=== PATIENT | female | born 1975 | race Caucasian/White ===

== ENCOUNTER 2016-03-28 23:47 | Emergency (ER) | payer OTHER ==
[~2016-03-28] VITALS: Ht 177.8 cm; Wt 124.2 kg
[~2016-03-28 23:47] MED LIST: AMOXICILLIN500 MG PO; ATENOLOL50 M1 NG; ATENOLOL50 MG PO; CYMBALTA20 MG PO; FERGON324 MG PO; IBUPROFEN200 M1 PO; INDERAL40 MG PO; KLONOPIN2 MG PO; MOTRIN600 MG PO; PRISTIQ50 MG; SEROQUEL50 MG; TOPAMAX100 MG PO; TOPAMAX50 MG PO; TYLENOL EXTRA500 MG PO; XANAX XR1 MG PO; XANAX0.5 MG PO
[2016-03-29 01:21] LABS: CHLORIDE 105 mEq/L (99-109); POTASSIUM 3.5 mEq/L (3.7-5.4); SODIUM 141 mEq/L (136-147)
[2016-03-29 01:22] LABS: HEMATOCRIT 38.9 % (36.0-46.0); MCHC 32.1 G/DL (30.0-36.0); MCV 90.3 FL (83-99); MEAN PLAT.VOLUME 10.4 uM^3 (9.5-12.4); PLATELET COUNT 304 K/uL (156-360); RBC DIS.WIDTH-CV 14.7 % (11.8-14.6); RBC DIS.WIDTH-SD 47.6 % (39-53); RED BLOOD COUNT 4.31 M/uL (3.80-5.20); WHITE BLOOD COUNT 9.9 K/uL (4.1-10.2)
[2016-03-29 01:23] LABS: GLUCOSE 102 mg/dL (70-99)
[2016-03-29 01:24] LABS: ANION GAP 5 MEQ/L (2-14)
[2016-03-29 01:27] LABS: GFR ESTIMATE (CALCULATED) > 59 mL/min/; UREA NITROGEN (BUN) 18 mg/dL (9-23)
[2016-03-29 01:30] LABS: TROP-I INTERPRETATION NEGATIVE; TROPONIN-I < 0.01 ng/mL (0.0-0.30)
[2016-03-29 01:38] LABS: QUANTITATIVE HCG < 4.0 MIU/ML
[2016-03-29] MEDS ORDERED: ATARAX,VISTARIL50 MG PO (02:22)
[2016-03-29 02:32] VITALS: BP 110/65
== END 2016-03-29 02:54 | disposition home or self-care (01) ==
LOC: EME 23:47
PROVIDERS: Emergency Medicine
DX: F43.9 Reaction to severe stress, unspecified (principal); F15.23 Other stimulant dependence with withdrawal; F13.239 Sedative, hypnotic or anxiolytic dependence with withdrawal, unspecified; F17.200 Nicotine dependence, unspecified, uncomplicated
CPT/HCPCS: 71010; 80048; 84484; 84702; 85027; 93005; 99281; 99284; Q0177

== ENCOUNTER 2016-05-24 02:57 | Emergency (ER) | payer OTHER ==
[~2016-05-24] VITALS: Ht 177.8 cm; Wt 122.4 kg
[~2016-05-24 02:57] MED LIST changes: +ATARAX,VISTARIL50 MG PO
[2016-05-24 03:44] LABS: HEMATOCRIT 41.3 % (36.0-46.0); MCH 29.2 PG (29.0-34.0); MCHC 32.7 G/DL (30.0-36.0); MCV 89.4 FL (83-99); MEAN PLAT.VOLUME 10.3 uM^3 (9.5-12.4); PLATELET COUNT 242 K/uL (156-360); RBC DIS.WIDTH-CV 14.6 % (11.8-14.6); RBC DIS.WIDTH-SD 48.1 % (39-53); RED BLOOD COUNT 4.62 M/uL (3.80-5.20); WHITE BLOOD COUNT 9.2 K/uL (4.1-10.2)
[2016-05-24 03:54] LABS: CHLORIDE 108 mEq/L (99-109); POTASSIUM 3.4 mEq/L (3.7-5.4); SODIUM 140 mEq/L (136-147)
[2016-05-24 03:56] LABS: GLUCOSE 116 mg/dL (70-99)
[2016-05-24 03:58] LABS: ANION GAP 9 MEQ/L (2-14)
[2016-05-24 04:00] LABS: GFR ESTIMATE (CALCULATED) > 59 mL/min/
[2016-05-24 04:01] LABS: UREA NITROGEN (BUN) 16 mg/dL (9-23)
[2016-05-24 04:05] LABS: TROP-I INTERPRETATION NEGATIVE; TROPONIN-I < 0.01 ng/mL (0.0-0.30)
[2016-05-24] MEDS ORDERED: XANAX2 MG PO (05:27)
[2016-05-24 06:13] VITALS: BP 118/71
== END 2016-05-24 06:18 | disposition home or self-care (01) ==
LOC: EME 02:57
DX: F41.1 Generalized anxiety disorder (principal); F41.0 Panic disorder [episodic paroxysmal anxiety]; R07.89 Other chest pain; J45.909 Unspecified asthma, uncomplicated; F17.200 Nicotine dependence, unspecified, uncomplicated
CPT/HCPCS: 71020; 80048; 84484; 85027; 93005; 99281; 99285

== ENCOUNTER 2016-12-28 15:57 | Emergency (ER) | payer OTHER ==
[~2016-12-28] VITALS: Ht 177.8 cm; Wt 117.9 kg
[~2016-12-28 15:57] MED LIST changes: +XANAX2 MG PO
[2016-12-28] MEDS ORDERED: XANAX1 MG PO (19:02)
[2016-12-28 19:37] VITALS: BP 119/69
== END 2016-12-28 19:40 | disposition home or self-care (01) ==
LOC: EME 15:57
DX: F41.0 Panic disorder [episodic paroxysmal anxiety] (principal); Z76.0 Encounter for issue of repeat prescription; J45.909 Unspecified asthma, uncomplicated; F17.200 Nicotine dependence, unspecified, uncomplicated; Z88.6 Allergy status to analgesic agent
CPT/HCPCS: 99281; 99284

== ENCOUNTER 2017-01-23 14:18 | Emergency (ER) | payer OTHER ==
[~2017-01-23] VITALS: Ht 177.8 cm; Wt 117.5 kg
[~2017-01-23 14:18] MED LIST changes: +XANAX1 MG PO
[2017-01-23 15:36] LABS: EOSINOPHIL (%) 0.9 % (0-5); EOSINOPHIL COUNT 0.1 K/uL (0-0.3); HEMATOCRIT 43.7 % (36.0-46.0); IMMATURE GRANULOCYTE (%) 0.1 % (0.0-0.7); INSTRUMENT ABS NEUTROPHIL CT 5.6 K/uL; LYMPHOCYTE COUNT 2.3 K/uL (1.0-2.8); MCH 32.2 PG (29.0-34.0); MCHC 33.9 G/DL (30.0-36.0); MCV 95.2 FL (83-99); MEAN PLAT.VOLUME 10.2 uM^3 (9.5-12.4); MONOCYTE (%) 6.2 % (3-12); MONOCYTE COUNT 0.5 K/uL (0-0.8); NEUTROPHIL COUNT 5.6 K/uL (1.8-6.4); PLATELET COUNT 274 K/uL (156-360); RBC DIS.WIDTH-CV 12.9 % (11.8-14.6); RBC DIS.WIDTH-SD 45.3 % (39-53); RED BLOOD COUNT 4.59 M/uL (3.80-5.20); WHITE BLOOD COUNT 8.5 K/uL (4.1-10.2)
[2017-01-23 15:44] LABS: CHLORIDE 105 mEq/L (99-109); SODIUM 142 mEq/L (136-147)
[2017-01-23 15:46] LABS: GLUCOSE 99 mg/dL (70-99)
[2017-01-23 15:47] LABS: ANION GAP 12 MEQ/L (2-14)
[2017-01-23 15:49] LABS: SERUM ETHYL ALCOHOL < 10 mg/dL
[2017-01-23 15:50] LABS: GFR ESTIMATE (CALCULATED) > 59 mL/min/
[2017-01-23 15:51] LABS: UREA NITROGEN (BUN) 16 mg/dL (9-23)
[2017-01-23 16:08] VITALS: BP 127/75
== END 2017-01-23 16:13 | disposition home or self-care (01) ==
LOC: EME 14:18
PROVIDERS: Emergency Medicine
DX: F41.1 Generalized anxiety disorder (principal); J45.909 Unspecified asthma, uncomplicated; F17.200 Nicotine dependence, unspecified, uncomplicated; Z88.5 Allergy status to narcotic agent; Z88.6 Allergy status to analgesic agent
CPT/HCPCS: 80048; 81003; 85025; 90839; 93005; 99281; 99284; G0480

== ENCOUNTER 2017-03-17 08:14 | Emergency (ER) | payer OTHER ==
[~2017-03-17] VITALS: Ht 177.8 cm; Wt 120.5 kg
[2017-03-17 11:30] VITALS: BP 128/72
== END 2017-03-17 11:31 | disposition home or self-care (01) ==
LOC: EME 08:14
DX: R06.2 Wheezing (principal); F41.9 Anxiety disorder, unspecified; F41.0 Panic disorder [episodic paroxysmal anxiety]; F43.10 Post-traumatic stress disorder, unspecified; Z90.49 Acquired absence of other specified parts of digestive tract; Z87.09 Personal history of other diseases of the respiratory system; Z88.6 Allergy status to analgesic agent; Z88.5 Allergy status to narcotic agent
CPT/HCPCS: 71046; 94640; 99281; 99284

== ENCOUNTER 2017-05-03 17:37 | Emergency (ER) | payer OTHER ==
[~2017-05-03] VITALS: Ht 177.8 cm; Wt 118.9 kg
[2017-05-03 20:21] VITALS: BP 112/68
== END 2017-05-03 19:49 | disposition home or self-care (01) ==
LOC: EME 17:37
DX: T76.21XA Adult sexual abuse, suspected, initial encounter (principal); J45.909 Unspecified asthma, uncomplicated; F43.10 Post-traumatic stress disorder, unspecified; F17.200 Nicotine dependence, unspecified, uncomplicated; Z88.5 Allergy status to narcotic agent; Z88.6 Allergy status to analgesic agent
CPT/HCPCS: J0696

== ENCOUNTER 2017-06-07 23:34 | Emergency (ER) | payer OTHER ==
[~2017-06-07] VITALS: Ht 177.8 cm; Wt 122.1 kg
[2017-06-07 23:38] VITALS: BP 130/63
[2017-06-08 02:16] LABS: BASOPHIL (%) 0.5 % (0-1); BASOPHIL COUNT 0.1 K/uL (0-0.1); EOSINOPHIL (%) 2.2 % (0-5); EOSINOPHIL COUNT 0.3 K/uL (0-0.3); HEMATOCRIT 42.3 % (36.0-46.0); HEMOGLOBIN 14.3 G/DL (11.9-15.5); IMMATURE GRANULOCYTE (%) 0.4 % (0.0-0.7); LYMPHOCYTE COUNT 3.2 K/uL (1.0-2.8); MCH 32.6 PG (29.0-34.0); MCHC 33.8 G/DL (30.0-36.0); MCV 96.6 FL (83-99); MONOCYTE (%) 5.7 % (3-12); MONOCYTE COUNT 0.8 K/uL (0-0.8); NEUTROPHIL (%) 67.2 % (45-76); PLATELET COUNT 262 K/uL (156-360); RBC DIS.WIDTH-CV 13.1 % (11.8-14.6); RBC DIS.WIDTH-SD 46.7 % (39-53); RED BLOOD COUNT 4.38 M/uL (3.80-5.20); WHITE BLOOD COUNT 13.4 K/uL (4.1-10.2)
[2017-06-08 02:25] LABS: ALBUMIN 3.7 g/dL (3.2-4.8); CHLORIDE 106 mEq/L (99-109); POTASSIUM 3.9 mEq/L (3.7-5.4); SODIUM 143 mEq/L (136-147)
[2017-06-08 02:27] LABS: GLUCOSE 107 mg/dL (70-99); TOTAL PROTEIN 6.8 g/dL (6.4-8.3)
[2017-06-08 02:29] LABS: TOTAL BILIRUBIN 0.3 mg/dL (0.0-1.0)
[2017-06-08 02:30] LABS: SERUM ETHYL ALCOHOL < 10 mg/dL
[2017-06-08 02:31] LABS: ALKALINE PHOSPHATASE 85 IU/L (3-129); CREATININE 0.8 mg/dL (0.6-1.3); GFR ESTIMATE (CALCULATED) > 59 mL/min/
[2017-06-08 02:32] LABS: AST (GOT) 16 IU/L (2-34); UREA NITROGEN (BUN) 15 mg/dL (9-23)
[2017-06-08 02:34] LABS: ALT (GPT) 11 IU/L (3-49)
[2017-06-08 02:39] LABS: QUANTITATIVE HCG < 4.0 MIU/ML
[2017-06-08 03:11] LABS: AMPHETAMINE NEGATIVE (500 ng/mL); BARBITURATES NEGATIVE (200 ng/mL); BENZODIAZEPINES NEGATIVE (150 ng/mL); BUPRENORPHINE NEGATIVE (10 ng/mL); COCAINE NEGATIVE (150 ng/mL); METHADONE NEGATIVE (200 ng/mL); METHAMPHETAMINE NEGATIVE (500 ng/mL); OPIATES (MORPHINE) NEGATIVE (100 ng/mL); OXYCODONE NEGATIVE (100 ng/mL); PHENCYCLIDINE NEGATIVE (25 ng/mL); PROPOXYPHENE NEGATIVE (300 ng/mL); THC CANNABINOIDS NEGATIVE (50 ng/mL); TRICYCLIC ANTIDEPRESSANTS NEGATIVE (300 ng/mL)
== END 2017-06-08 06:36 | disposition home or self-care (01) ==
LOC: EME 23:34
PROVIDERS: Emergency Medicine
DX: F41.1 Generalized anxiety disorder (principal); J45.909 Unspecified asthma, uncomplicated; M54.30 Sciatica, unspecified side; F43.10 Post-traumatic stress disorder, unspecified; F31.9 Bipolar disorder, unspecified; F41.0 Panic disorder [episodic paroxysmal anxiety]; F32.9 Major depressive disorder, single episode, unspecified; Z90.49 Acquired absence of other specified parts of digestive tract; Z88.5 Allergy status to narcotic agent; Z88.6 Allergy status to analgesic agent; F17.200 Nicotine dependence, unspecified, uncomplicated
CPT/HCPCS: 80053; 84702; 85025; 90839; 99281; 99285; G0480

== ENCOUNTER 2017-07-11 23:32 | Emergency (ER) | payer OTHER ==
[~2017-07-11] VITALS: Ht 177.8 cm; Wt 119.7 kg
[2017-07-12 00:50] LABS: CARBON DIOXIDE (BICARBONATE) 30.6 MEQ/L (20-31); HEMATOCRIT 38.7 % (36.0-46.0); HEMOGLOBIN 13.4 G/DL (11.9-15.5); MCH 32.8 PG (29.0-34.0); MCHC 34.6 G/DL (30.0-36.0); MCV 94.9 FL (83-99); PLATELET COUNT 200 K/uL (156-360); RBC DIS.WIDTH-CV 13.2 % (11.8-14.6); RED BLOOD COUNT 4.08 M/uL (3.80-5.20); WHITE BLOOD COUNT 11.1 K/uL (4.1-10.2)
[2017-07-12 01:02] LABS: CHLORIDE 106 mEq/L (99-109); POTASSIUM 3.7 mEq/L (3.7-5.4); SODIUM 139 mEq/L (136-147)
[2017-07-12 01:04] LABS: GLUCOSE 118 mg/dL (70-99)
[2017-07-12 01:08] LABS: CREATININE 0.7 mg/dL (0.6-1.3); GFR ESTIMATE (CALCULATED) > 59 mL/min/
[2017-07-12 01:09] LABS: UREA NITROGEN (BUN) 12 mg/dL (9-23)
[2017-07-12 01:16] LABS: TROP-I INTERPRETATION NEGATIVE; TROPONIN-I < 0.01 ng/mL (0.0-0.30)
[2017-07-12] MEDS ORDERED: PREDNISONE10 M1 PO (02:52)
[2017-07-12 03:37] VITALS: BP 101/53
== END 2017-07-12 03:42 | disposition home or self-care (01) ==
LOC: EME 23:32
PROVIDERS: Emergency Medicine
DX: J45.901 Unspecified asthma with (acute) exacerbation (principal); F41.9 Anxiety disorder, unspecified; F17.200 Nicotine dependence, unspecified, uncomplicated; Z90.49 Acquired absence of other specified parts of digestive tract; Z88.5 Allergy status to narcotic agent; Z88.6 Allergy status to analgesic agent; Z88.8 Allergy status to other drugs, medicaments and biological substances
CPT/HCPCS: 71046; 80048; 82803; 84484; 85027; 85379; 93005; 94640; 99281; 99285; J7512

== ENCOUNTER 2017-08-15 15:08 | Emergency (ER) | payer OTHER ==
[~2017-08-15] VITALS: Ht 177.8 cm; Wt 124.1 kg
[~2017-08-15 15:08] MED LIST changes: +PREDNISONE10 M1 PO
[2017-08-15 20:00] VITALS: BP 114/60
== END 2017-08-15 20:00 | disposition home or self-care (01) ==
LOC: EME 15:08
DX: L55.1 Sunburn of second degree (principal); M79.89 Other specified soft tissue disorders; R60.0 Localized edema; F17.200 Nicotine dependence, unspecified, uncomplicated
CPT/HCPCS: 93970; 99281; 99285

== ENCOUNTER 2017-08-23 15:30 | Emergency (ER) | payer OTHER ==
[~2017-08-23] VITALS: Ht 177.8 cm; Wt 122.7 kg
[2017-08-23 17:12] LABS: APPEARANCE CLEAR ((CLEAR)); BILIRUBIN NEGATIVE; BLOOD LARGE; COLOR YELLOW ((YELLOW)); GLUCOSE (STRIP) NEGATIVE; KETONES NEGATIVE; LEUKOCYTES NEGATIVE; NITRITE NEGATIVE; PROTEIN (STRIP) 30; SPECIFIC GRAVITY 1.001 (1.000-1.030); UROBILINOGEN 0.2 MG/DL (0.2-1.0)
[2017-08-23 17:25] LABS: BASOPHIL (%) 0.4 % (0-1); EOSINOPHIL (%) 2.9 % (0-5); EOSINOPHIL COUNT 0.3 K/uL (0-0.3); HEMATOCRIT 35.2 % (36.0-46.0); IMMATURE GRANULOCYTE (%) 0.3 % (0.0-0.7); LYMPHOCYTE (%) 25.5 % (15-42); LYMPHOCYTE COUNT 2.5 K/uL (1.0-2.8); MCH 32.4 PG (29.0-34.0); MCHC 34.1 G/DL (30.0-36.0); MCV 95.1 FL (83-99); MONOCYTE (%) 7.1 % (3-12); MONOCYTE COUNT 0.7 K/uL (0-0.8); NEUTROPHIL (%) 63.8 % (45-76); NEUTROPHIL COUNT 6.2 K/uL (1.8-6.4); PLATELET COUNT 237 K/uL (156-360); RBC DIS.WIDTH-CV 12.7 % (11.8-14.6); RBC DIS.WIDTH-SD 44.1 % (39-53); WHITE BLOOD COUNT 9.6 K/uL (4.1-10.2)
[2017-08-23 17:34] LABS: ALBUMIN 3.4 g/dL (3.2-4.8); CHLORIDE 105 mEq/L (99-109); POTASSIUM 3.5 mEq/L (3.7-5.4); SODIUM 139 mEq/L (136-147)
[2017-08-23 17:37] LABS: GLUCOSE 94 mg/dL (70-99); TOTAL PROTEIN 6.1 g/dL (6.4-8.3)
[2017-08-23 17:38] LABS: TOTAL BILIRUBIN 0.4 mg/dL (0.0-1.0)
[2017-08-23 17:40] LABS: ALKALINE PHOSPHATASE 81 IU/L (3-129); CREATININE 0.8 mg/dL (0.6-1.3); GFR ESTIMATE (CALCULATED) > 59 mL/min/
[2017-08-23 17:41] LABS: UREA NITROGEN (BUN) 17 mg/dL (9-23)
[2017-08-23 17:42] LABS: AST (GOT) 15 IU/L (2-34)
[2017-08-23 17:43] LABS: ALT (GPT) 8 IU/L (3-49)
[2017-08-23 17:44] LABS: LIPASE 43 U/L (1.0-51.0)
[2017-08-23 17:51] LABS: QUANTITATIVE HCG < 4.0 MIU/ML
[2017-08-23 17:54] LABS: BACTERIA NONE SEEN /HPF; EPITHELIAL CELLS 1+ /HPF; MUCUS NONE SEEN /LPF; UCUL ADDED? NO; WHITE BLOOD CELLS NONE SEEN /HPF (0-5)
[2017-08-23 20:49] VITALS: BP 122/73
== END 2017-08-23 21:12 | disposition home or self-care (01) ==
LOC: EME 15:30
PROVIDERS: Emergency Medicine
DX: N93.8 Other specified abnormal uterine and vaginal bleeding (principal); J45.909 Unspecified asthma, uncomplicated; F32.9 Major depressive disorder, single episode, unspecified; F31.9 Bipolar disorder, unspecified; F43.10 Post-traumatic stress disorder, unspecified; F17.200 Nicotine dependence, unspecified, uncomplicated; Z90.49 Acquired absence of other specified parts of digestive tract; Z88.5 Allergy status to narcotic agent; Z88.6 Allergy status to analgesic agent
CPT/HCPCS: 76856; 80053; 81003; 83690; 84702; 85025; 99281; 99284

== ENCOUNTER 2017-08-26 13:53 | Emergency (ER) | payer OTHER ==
[~2017-08-26] VITALS: Ht 177.8 cm; Wt 122.4 kg
[2017-08-26 15:29] LABS: BASOPHIL (%) 0.2 % (0-1); EOSINOPHIL (%) 3.6 % (0-5); EOSINOPHIL COUNT 0.3 K/uL (0-0.3); HEMATOCRIT 35.6 % (36.0-46.0); HEMOGLOBIN 12.1 G/DL (11.9-15.5); IMMATURE GRANULOCYTE (%) 0.8 % (0.0-0.7); LYMPHOCYTE (%) 24.3 % (15-42); LYMPHOCYTE COUNT 2.3 K/uL (1.0-2.8); MCH 32.4 PG (29.0-34.0); MCV 95.2 FL (83-99); MONOCYTE COUNT 0.7 K/uL (0-0.8); NEUTROPHIL (%) 64.1 % (45-76); NEUTROPHIL COUNT 5.9 K/uL (1.8-6.4); PLATELET COUNT 225 K/uL (156-360); RBC DIS.WIDTH-CV 12.8 % (11.8-14.6); RBC DIS.WIDTH-SD 44.4 % (39-53); RED BLOOD COUNT 3.74 M/uL (3.80-5.20); WHITE BLOOD COUNT 9.3 K/uL (4.1-10.2)
[2017-08-26 15:37] LABS: CHLORIDE 108 mEq/L (99-109); SODIUM 141 mEq/L (136-147)
[2017-08-26 15:38] LABS: GLUCOSE 110 mg/dL (70-99)
[2017-08-26 15:42] LABS: CREATININE 0.7 mg/dL (0.6-1.3); GFR ESTIMATE (CALCULATED) > 59 mL/min/
[2017-08-26 15:43] LABS: UREA NITROGEN (BUN) 12 mg/dL (9-23)
[2017-08-26 15:52] LABS: QUANTITATIVE HCG < 4.0 MIU/ML
[2017-08-26 17:34] LABS: APPEARANCE CLOUDY ((CLEAR)); COLOR BROWN ((YELLOW))
[2017-08-26 17:38] LABS: BILIRUBIN NEGATIVE; BLOOD LARGE; GLUCOSE (STRIP) NEGATIVE; KETONES NEGATIVE; LEUKOCYTES NEGATIVE; NITRITE NEGATIVE; PROTEIN (STRIP) 100; SPECIFIC GRAVITY 1.029 (1.000-1.030)
[2017-08-26 17:42] LABS: RED BLOOD CELLS TNTC /HPF (0-5); UCUL ADDED? YES
[2017-08-26 17:51] LABS: AMPHETAMINE NEGATIVE (500 ng/mL); BARBITURATES NEGATIVE (200 ng/mL); BENZODIAZEPINES NEGATIVE (150 ng/mL); BUPRENORPHINE NEGATIVE (10 ng/mL); COCAINE NEGATIVE (150 ng/mL); METHADONE NEGATIVE (200 ng/mL); METHAMPHETAMINE NEGATIVE (500 ng/mL); OPIATES (MORPHINE) NEGATIVE (100 ng/mL); OXYCODONE NEGATIVE (100 ng/mL); PHENCYCLIDINE NEGATIVE (25 ng/mL); PROPOXYPHENE NEGATIVE (300 ng/mL); THC CANNABINOIDS NEGATIVE (50 ng/mL); TRICYCLIC ANTIDEPRESSANTS NEGATIVE (300 ng/mL)
[2017-08-26 19:27] VITALS: BP 112/58
== END 2017-08-26 19:28 | disposition home or self-care (01) ==
LOC: EME 13:53
PROVIDERS: Nurse Practitioner Family
DX: N83.201 Unspecified ovarian cyst, right side (principal); J45.909 Unspecified asthma, uncomplicated; F43.10 Post-traumatic stress disorder, unspecified; F31.9 Bipolar disorder, unspecified; F32.9 Major depressive disorder, single episode, unspecified; Z90.49 Acquired absence of other specified parts of digestive tract; F17.200 Nicotine dependence, unspecified, uncomplicated; Z88.5 Allergy status to narcotic agent; Z88.6 Allergy status to analgesic agent
CPT/HCPCS: 76856; 80048; 81003; 84702; 85025; 87077; 87086; 87186; 99281; 99284